=== PATIENT | female | born 1990 | race Caucasian/White ===

== ENCOUNTER 2016-07-02 07:53 | Inpatient (IN) | payer OTHER ==
[~2016-07-02] VITALS: Ht 167.6 cm; Wt 81.6 kg
[2016-07-02] VITALS (10 sets, daily range): BP systolic 118–146; RESP 18–20; TEMP 98.2–98.3; Ht 167.6 cm; Wt 81.6 kg
[2016-07-02] MEDS ORDERED: METOCLOPRAMIDE 10 MG/2 ML VIAL IV PUSH PRN (08:20)
[2016-07-02] MEDS ORDERED: LIDOCAINE 1% 30 ML PF INFILTRATE ONE (08:20)
[2016-07-02] MEDS ORDERED: ONDANSETRON 4 MG VIAL IV PRN (08:20)
[2016-07-02] MEDS ORDERED: FAMOTIDINE 20 MG INJ IV PRN (08:20)
[2016-07-02] MEDS ORDERED: TERBUTALINE 1 MG/ML VIAL SUBQ PRN (08:20)
[2016-07-02] MEDS ORDERED: ALU/MAG/SIM 30 ML UDC PO PRN (08:20)
[2016-07-02] MEDS ORDERED: ACETAMINOPHEN 325 MG TAB PO PRN (08:20)
[2016-07-02] MEDS ORDERED: CEFAZOLIN (LD/OB) 100 ML IV PRN (08:20)
[2016-07-02] MEDS ORDERED: FAMOTIDINE 20 MG TAB PO PRN (08:20)
[2016-07-02] MEDS ORDERED: ROPIV/FENT 0.2%-2MCG/ML 100 ML EPIDURAL ONE (08:39)
[2016-07-02] MEDS ORDERED: FENTANYL 100 MCG/2 ML AMP ONE (08:47)
[2016-07-02] MEDS ORDERED: ROPIV/FENT 0.2%-2MCG/ML 100 ML EPIDURAL SCH (09:15)
[2016-07-02] MEDS ORDERED: LACT RINGERS 500 ML IV ONE (09:15)
[2016-07-02] MEDS ORDERED: LACT RINGERS 500 ML IV PRN (09:15)
[2016-07-02] MEDS ORDERED: SODIUM CHLORIDE 0.9% 500 ML IV PRN (09:15)
[2016-07-02] MEDS ORDERED: FENTANYL 100 MCG/2 ML AMP EPIDURAL ONE (09:15)
[2016-07-02] MEDS: LACT RINGERS 1,000 ML IV SCH ×3 (09:34→13:35)
[2016-07-02] MEDS ORDERED: LIDOCAINE/EPI 1.5% MPF 30 ML VIAL EPIDURAL ONE (09:43)
[2016-07-02] MEDS: OXYTOCIN 15 UNITS/250 ML NS 250 ML IV SCH ×2 (13:36→13:48)
[2016-07-02] MEDS ORDERED: SALINE FLUSH 10 ML FLUSH PRN (13:45)
[2016-07-02] MEDS ORDERED: TDaP 0.5 ML VIAL IM.VACC ONE (13:45)
[2016-07-02] MEDS ORDERED: OXYTOCIN 15 UNITS/250 ML NS 250 ML IV SCH (13:45)
[2016-07-02] MEDS ORDERED: DERMOPLAST SPRAY TOPICAL PRN (13:45)
[2016-07-02] MEDS ORDERED: ASTRINGENT MED PADS 40'S TOPICAL PRN (13:45)
[2016-07-02] MEDS: Ibuprofen 600 MG TAB PO SCH ×3 (16:10→23:35)
[2016-07-02] MEDS ORDERED: **ONLY ANESTEHSIA MAY ORDER OPIATES WHILE ON EPIDURAL XX SCH (20:00)
[2016-07-03 01:23] VITALS: BP_SYST 148; RESP 18; TEMP 98
[2016-07-03 05:11] VITALS: BP_SYST 135; RESP 16; TEMP 97.9
[2016-07-03] MEDS: Ibuprofen 600 MG TAB PO SCH ×3 (05:38→18:07)
[2016-07-03] MEDS: DOCUSATE SOD 100 MG CAP PO SCH (09:06)
[2016-07-03 09:26] VITALS: BP_SYST 137; RESP 18; TEMP 97.6
[2016-07-03 13:49] VITALS: BP_SYST 151; TEMP 98.1
[2016-07-03 18:01] VITALS: BP_SYST 127; RESP 18; TEMP 97.7
[2016-07-04] MEDS: Ibuprofen 600 MG TAB PO SCH ×3 (00:01→12:08)
[2016-07-04 05:31] VITALS: BP_SYST 120; RESP 16; TEMP 97.6
[2016-07-04 09:23] VITALS: BP_SYST 114; RESP 18; TEMP 98.3
[2016-07-04] MEDS: DOCUSATE SOD 100 MG CAP PO SCH (09:55)
[2016-07-04 12:33] VITALS: BP_SYST 114; RESP 18; TEMP 98.3
== END 2016-07-04 13:20 | disposition home or self-care (01) | DRG 775 ==
LOC: LDOP 07:53 → LD 08:01 → OB 16:34
PROVIDERS: ADMIT Obstetrics & Gynecology Reproductive Endocrinology; ATTEND Obstetrics & Gynecology Reproductive Endocrinology
PROC: 10E0XZZ Delivery of Products of Conception, External Approach (ICD-10-PCS; principal; 2016-07-02)
DX: O80 Encounter for full-term uncomplicated delivery (principal); Z37.0 Single live birth; Z3A.39 39 weeks gestation of pregnancy
CPT/HCPCS: 85014; 85018; 85025